=== PATIENT | male | born 1990 | race African-American/Black ===

== ENCOUNTER 2019-12-14 11:14 | Emergency (ER) | payer OTHER ==
[~2019-12-14] VITALS: Ht 188 cm; Wt 104.3 kg
[2019-12-14] MEDS ORDERED: ZITHROMAX500 MG PO (15:20)
== END 2019-12-14 15:51 | disposition home or self-care (01) ==
LOC: ER 11:14
DX: B33.8 Other specified viral diseases (principal); B96.0 Mycoplasma pneumoniae [M. pneumoniae] as the cause of diseases classified elsewhere; Z03.818 Encounter for observation for suspected exposure to other biological agents ruled out